=== PATIENT | male | born 1960 | race Caucasian/White ===

== ENCOUNTER 2017-05-30 16:54 | Inpatient (IN) | payer BC ==
[~2017-05-30] VITALS: Ht 180.3 cm; Wt 115.2 kg
[~2017-05-30 16:54] MED LIST: IBUP-1953 PO
[2017-05-30] MEDS ORDERED: ONDANSETRON HCL/PF 4 MG/2 ML VIAL ONE (17:12)
--- NOTE | 2017-05-30 17:23 | NUR ---
LABETALOL ORDER REVISED BY PHARMACY, MEDICATED ORDERED
[2017-05-30] MEDS ORDERED: LABETALOL 20 MG/4 ML VIAL IV ONE ×2 (17:30→18:00)
[2017-05-30] MEDS ORDERED: LABETALOL HCL IV 100MG VIAL IV ONE (17:30)
[2017-05-30] MEDS ORDERED: ONDANSETRON HCL/PF 4 MG/2 ML VIAL IVP ONE (17:30)
[2017-05-30 17:33] LABS: BASOPHILS # (AUTO) 0.1 /CMM (0.0-0.2); BASOPHILS % (AUTO) 0.6 % (0.0-2.0); EOSINOPHILS # (AUTO) 0.1 /CMM (0.0-0.7); EOSINOPHILS % (AUTO) 0.9 % (0.0-6.0); HEMATOCRIT 49 % (39-51); HEMOGLOBIN 17.2 g/dL (13.5-17.5); LYMPHOCYTES # (AUTO) 2.5 /CMM (0.8-4.8); LYMPHOCYTES % (AUTO) 20.3 % (20.0-44.0); MEAN CORPUSCULAR HEMOGLOBIN 29 PG (26.0-33.0); MEAN CORPUSCULAR HGB CONC 35 g/dl (31.0-36.0); MEAN CORPUSCULAR VOLUME 84 fL (80-96); MONOCYTES # (AUTO) 0.4 /CMM (0.1-1.30); MONOCYTES % (AUTO) 3.4 % (2.0-12.0); NEUTROPHILS # (AUTO) 9.5 /CMM (1.8-8.9); NEUTROPHILS % (AUTO) 74.8 % (43.0-81.0); PLATELET COUNT (AUTO) 281 /CMM (150-450); RDW COEFFICIENT OF VARIATION 12.1 (11.5-15.0); RED BLOOD CELL COUNT(AUTO) 5.87 MIL/uL (4.5-6.0); WHITE BLOOD COUNT (AUTO) 12.6 K/uL (4.3-11.0)
[2017-05-30 17:52] LABS: CALCIUM, SERUM 9.8 mg/dL (8.5-10.1); CARBON DIOXIDE 26 mmol/L (21-32); CHLORIDE 100 mmol/L (98-107); CREATININE 0.7 mg/dL (0.6-1.3); GLUCOSE 199 mg/dL (74-106); POTASSIUM 3.4 mmol/L (3.5-5.1); SODIUM SERUM 136 mmol/L (136-145); UREA NITROGEN, BLOOD 12 mg/dL (7-18)
[2017-05-30 17:56] LABS: INR 0.95 (0.85-1.15)
[2017-05-30 18:01] LABS: TROPONIN I < 0.017 ng/mL (0.00-0.056)
[2017-05-30 18:03] LABS: CHOLESTEROL 271 mg/dL (<200); HDL CHOLESTEROL 45 mg/dL (40-60); LDL 179 mg/dL (0-99); TRIGLYCERIDES 342 mg/dL (30-150)
--- NOTE | 2017-05-30 18:44 | NUR ---
CALLED NURSE SUP FOR TELE BED
[2017-05-30] MEDS ORDERED: ASPIRIN EC 81 MG TABLET.DR PO ONE (19:30)
--- NOTE | 2017-05-30 19:46 | NUR ---
RECEIVED REPORT FROM ER NURSE ANGEL
[2017-05-30 20:00] VITALS: BP 193/107
[2017-05-30] MEDS ORDERED: HYDROCODONE/APAP 5/325MG 1 EACH TABLET PO PRN (20:00)
[2017-05-30] MEDS ORDERED: Z GUARD REMEDY 2 OZ OINT TP PRN (20:00)
[2017-05-30] MEDS ORDERED: MAG HYDROX/AL HYDROX/SIMETH 30 ML UDC PO PRN (20:00)
[2017-05-30] MEDS ORDERED: ACETAMINOPHEN 325 MG TABLET PO PRN (20:00)
[2017-05-30] MEDS ORDERED: MAGNESIUM HYDROXIDE 30 ML UDC PO PRN (20:00)
[2017-05-30] MEDS ORDERED: ZOLPIDEM TARTRATE 5 MG TABLET PO PRN (20:00)
[2017-05-30] MEDS ORDERED: ONDANSETRON HCL/PF 4 MG/2 ML VIAL IVP PRN (20:00)
--- NOTE | 2017-05-30 20:00 | NUR ---
ALICIA RN INITIAL NOTES RECEIVED PATIENT VIA GURNEY, PATIENT ABLE TO AMBULATE WITH NO DIFFICULTY. PATIENT DENIES PAIN OR DISCOMFORT AT THIS TIME. DENIES HEADACHE. DENIES SOB. SKIN WARM AND DRY TO TOUCH. RESPIRATIONS EVEN AND UNLABORED ON ROOM AIR. ON TELE MONITOR SINUS RHYTHM 82. PER PATIENT HE HASN'T BEEN ADMITTED TO THE HOSPITAL BEFORE. HE STATES HE HAS NO HISTORY OF HTN, BUT HE TAKE HIS MOTHERS BLOOD PRESSURE MEDICATION, UNABLE TO SAY WHAT KIND. EDUCATED ON DIET AND EXERCISE, WEIGHT LOSS. PATIENT VERBALIZED UNDERSTANDING. ORIENTED TO ROOM AND CALL LIGHT SYSTEM. PATIENT VERBALIZED UNDERSTANDING. NOTED WITH ELEVATED BLOOD PRESSURE, WILL RECHECK WHEN PATIENT IS SITUATED. WITH RAC 18G PATENT AND INTACT. HOB ELEVATED. SIDE RAILS UP AND LOCKED. BED KEPT AT LOWEST POSITION. CALL LIGHT KEPT WITHIN EASY REACH. WILL CONTINUE TO MONITOR.
--- NOTE | 2017-05-30 20:00 | NUR ---
REPORT RECEIVE FROM [facility]. ASPIRIN GIVEN. ROOM OBTAINED FOR ADMISSION. REPORT CALLED. PT BEING TRANSFERRED TO TELE.
[2017-05-30] MEDS ORDERED: HYDROMORPHONE INJ 0.5 MG/0.5 ML SYRINGE IV PRN (20:30)
[2017-05-30] MEDS: METOPROLOL TARTRATE 25 MG TABLET PO SCH (20:48)
[2017-05-30] MEDS: ENOXAPARIN SODIUM 40 MG/0.4 ML DISP.SYRIN SQ SCH (20:52)
[2017-05-30 21:00] VITALS: BP 178/99
--- NOTE | 2017-05-30 21:54 | NUR ---
BLOOD PRESSURE RECHECKED 149/84, PULSE 79. PATIENT RESTING COMFORTABLY WITH AT BEDSIDE. NO C/O PAIN OR DISCOMFORT. WILL CONTINUE TO MONITOR.
[2017-05-31] VITALS (7 sets, daily range): BP systolic 145–236; BP diastolic 85–122
[2017-05-31 06:40] LABS: BASOPHILS % (AUTO) 0.3 % (0.0-2.0); EOSINOPHILS # (AUTO) 0.1 /CMM (0.0-0.7); EOSINOPHILS % (AUTO) 1.2 % (0.0-6.0); HEMATOCRIT 42 % (39-51); HEMOGLOBIN 14.6 g/dL (13.5-17.5); LYMPHOCYTES # (AUTO) 2.2 /CMM (0.8-4.8); LYMPHOCYTES % (AUTO) 23.4 % (20.0-44.0); MEAN CORPUSCULAR HEMOGLOBIN 30 PG (26.0-33.0); MEAN CORPUSCULAR HGB CONC 35 g/dl (31.0-36.0); MEAN CORPUSCULAR VOLUME 85 fL (80-96); MONOCYTES # (AUTO) 0.4 /CMM (0.1-1.30); MONOCYTES % (AUTO) 4.5 % (2.0-12.0); NEUTROPHILS # (AUTO) 6.6 /CMM (1.8-8.9); NEUTROPHILS % (AUTO) 70.6 % (43.0-81.0); PLATELET COUNT (AUTO) 211 /CMM (150-450); RED BLOOD CELL COUNT(AUTO) 4.87 MIL/uL (4.5-6.0); WHITE BLOOD COUNT (AUTO) 9.3 K/uL (4.3-11.0)
--- NOTE | 2017-05-31 06:55 | NUR ---
ALICIA RN CLOSING NOTES NO SIGNIFICANT CHANGES OVERNIGHT. ALL NEEDS ANTICIPATED AND MET. DENIES PAIN OR DISCOMFORT. STATES HE FEELS BETTER. VERY HAPPY WITH CARE. DENIES SOB. DENIES CHEST PAIN. AT BEDSIDE. HOB ELEVATED. HOB ELEVATED. SIDE RAILS UP AND LOCKED. BED KEPT AT LOWEST POSITION. CALL LIGHT KEPT WITHIN EASY REACH. CONTINUITY OF CARE OF ENDORSED TO AM NURSE. Addendum: 05/31/17 at 0744 by NILDA GANNON RN PATIENT NOTED WITH EPISODE OF AFLUTTER FOR 6-10SECONDS. PATIENT STATED HE'S FELT FINE, DENIES PAIN OR DISCOMFORT. ENDORSED TO AM NURSE.
[2017-05-31 06:57] LABS: CALCIUM, SERUM 9.2 mg/dL (8.5-10.1); CREATININE 0.9 mg/dL (0.6-1.3); POTASSIUM 3.7 mmol/L (3.5-5.1)
[2017-05-31] MEDS: METOPROLOL TARTRATE 25 MG TABLET PO SCH ×2 (08:23→16:46)
[2017-05-31] MEDS: hydrALAZINE HCL IV 20 MG VIAL IV PRN ×2 (08:24→15:06)
[2017-05-31] MEDS: LISINOPRIL (10MG) 10 MG TABLET PO SCH (10:02)
[2017-05-31] MEDS: AMLODIPINE BESYLATE 10 MG TABLET PO SCH (16:46)
[2017-05-31] MEDS: ENOXAPARIN SODIUM 40 MG/0.4 ML DISP.SYRIN SQ SCH (21:51)
[2017-05-31] MEDS ORDERED: ATORVASTATIN 40 MG TABLET PO SCH (22:00)
[2017-06-01] VITALS: BP 145/85
[2017-06-01 04:00] VITALS: BP 139/77
[2017-06-01 08:00] VITALS: BP 199/104
--- NOTE | 2017-06-01 08:00 | NUR ---
TD/RN AM SHIFT INITIAL NOTES RECEIVED AT AWAKE IN BED, WITH ON BEDSIDE. NO ACUTE CHANGE OF CONDITION OR DISTRESS NOTED. PT A/O X 4, ON ROOM AIR SATURATING @ 97. ON TELE WITH SINUS RHYTHM, HR 94. IV SITE FLUSHED, PATENT, SL. PT DENIES ANY SYMPTOMS OF HYPERTENSION, BP 199/104. SCHEDULED AM MEDS TO BE GIVEN. CL WITHIN REACHED AND SAFETY MAINTAINED. ON GOING MONITORING.
[2017-06-01] MEDS: LISINOPRIL (10MG) 10 MG TABLET PO SCH (08:16)
[2017-06-01] MEDS: AMLODIPINE BESYLATE 10 MG TABLET PO SCH (08:16)
[2017-06-01] MEDS: METOPROLOL TARTRATE 25 MG TABLET PO SCH (08:16)
[2017-06-01] MEDS ORDERED: METOPROLOL TARTRATE 25 MG TABLET PO SCH (09:00)
--- NOTE | 2017-06-01 09:38 | NUR ---
TD/RN ROUNDS - DR. NUNEZ PT SEEN & EXAMINED BY DR. NUNEZ. NO NEW ORDERS RECEIVED AT THIS TIME. MONITORING CONTINUED. PT GIVEN 25MG OF METOPROLOL, NEW ORDER RECEIVED DOSING INCREASED BY 25MG, PT ALREADY GIVEN 25MG EARLIER. MONITORING CONTINUED.
--- NOTE | 2017-06-01 10:40 | NUR ---
TD/RN ROUNDS - DR. WINCHESTER UPDATED PT'S CONDITION, NOTIFIED MD THAT PT'S BP IS STILL UNCONTROLLED. WITH NEW ORDER RECEIVED TO GIVE PT CLONIDINE 0.2MG P.O ONCE AND CHECK BP AFTER ONE HOUR AND NOTIFY MD. ORDER NOTED AND CARRIED OUT.
[2017-06-01] MEDS ORDERED: CLONIDINE HCL 0.1 MG TABLET PO ONE (11:00)
[2017-06-01] MEDS ORDERED: AMLO10TA2 PO (11:04)
[2017-06-01] MEDS ORDERED: ASPI-605 PO (11:04)
[2017-06-01] MEDS ORDERED: LISI1TAB9 PO (11:04)
[2017-06-01] MEDS ORDERED: METO25TA20 PO (11:04)
--- NOTE | 2017-06-01 11:17 | NUR ---
TD/RN CLONIDINE - ONCE PT'S BP 207/124, HR 90. PT GIVEN CLONIDINE 0.2MG ONCE. WILL RE-CHECK BP IN ONE HOUR. MONITORING.
[2017-06-01 11:18] VITALS: BP 207/124
[2017-06-01 12:00] VITALS: BP 207/124
[2017-06-01 12:24] VITALS: BP 168/95
--- NOTE | 2017-06-01 12:57 | NUR ---
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 VERBALIZED UNDERSTANDING. DISCHARGE DOCUMENTS AND PRESCRIPTION GIVEN TO PT. IB BAND REMOVED, IV SITE REMOVED, PRESSURE DRESSING APPLIED, NO S/S OF INFECTION. PT LEFT TD UNIT IN STABLE CONDITION, AMBULATORY WITH STEADY GAIT ACCOMPANIED WITH HIS TO HOSPITAL LOBBY TO AN AWAITING PRIVATE CAR.
== END 2017-06-01 12:55 | disposition home or self-care (01) | DRG 305 ==
LOC: ER 16:56 → TELE1 19:56 → TELE-TD 20:08
PROVIDERS: ADMIT Internal Medicine; ATTEND Internal Medicine
DX: I16.1 Hypertensive emergency (principal); R65.10 Systemic inflammatory response syndrome (SIRS) of non-infectious origin without acute organ dysfunction; D72.829 Elevated white blood cell count, unspecified; H53.2 Diplopia; H91.90 Unspecified hearing loss, unspecified ear; E66.9 Obesity, unspecified; R73.9 Hyperglycemia, unspecified; Z68.35 Body mass index [BMI] 35.0-35.9, adult; R51 Headache; E87.6 Hypokalemia
CPT/HCPCS: 36415; 70450-TC; 70551-TC; 71045-TC; 80048-TC; 80061-TC; 82962-TC; 83735-TC; 84100-TC; 84484-TC; 85025-TC; 85730-TC; 87081-TC; 93307-TC; A4606; J0360; J1650; J2405; J3490; Z7610